=== PATIENT | male | born 1950 | race African-American/Black ===

== ENCOUNTER 2018-09-09 08:40 | Emergency (ER) | payer OTHER ==
[~2018-09-09] VITALS: Ht 182.9 cm; Wt 127.0 kg
[~2018-09-09 08:40] MED LIST: ALBU0.0939 IH
[2018-09-09 08:48] VITALS: BP 143/111
--- NOTE | 2018-09-09 08:57 | NUR ---
PT JOSE L W/C ASSIST TO ED BED 06
--- NOTE | 2018-09-09 09:00 | NUR ---
68/M C/O LEFT KNEE PAIN S/P FALL YESTERDAY. HX.DM, LT KNEE LIGAMENT REPAIR 4 YEARS AGO PATIENT STATES PAIN OF 01/14 AT THIS TIME;MARIE GASTELUM MADE AWARE OF PT STATUS. Addendum: 09/09/18 at 0908 by [email or web address] DENIED LOC.
--- NOTE | 2018-09-09 09:07 | NUR ---
X RAY AT BEDSIDE
--- NOTE | 2018-09-09 09:27 | NUR ---
Patient being evaluated by DR MARTIN at bedside.
--- NOTE | 2018-09-09 09:33 | NUR ---
Patient being reevaluated by DR MARTIN at bedside.
--- NOTE | 2018-09-09 09:45 | NUR ---
LEFT KNEE IMMOBILIZER PLACED ON PATIENT
[2018-09-09 09:47] VITALS: BP 152/82
--- NOTE | 2018-09-09 09:47 | NUR ---
Patient discharged with bp 152/82 denies cohen at this time, md made aware. Written and verbal after care instructions given and explained. Patient verbalized understanding. Ambulatory with crutches . All questions addressed prior to discharge. Advised to follow up with PMD.
== END 2018-09-09 09:47 | disposition home or self-care (01) ==
LOC: MED 08:40
DX: S89.92XA Unspecified injury of left lower leg, initial encounter (principal); M17.12 Unilateral primary osteoarthritis, left knee; K42.9 Umbilical hernia without obstruction or gangrene; K43.9 Ventral hernia without obstruction or gangrene; R03.0 Elevated blood-pressure reading, without diagnosis of hypertension; J45.909 Unspecified asthma, uncomplicated; Z88.0 Allergy status to penicillin; Z79.899 Other long term (current) drug therapy; W07.XXXA Fall from chair, initial encounter; Y93.89 Activity, other specified; Y92.89 Other specified places as the place of occurrence of the external cause; Y99.8 Other external cause status
CPT/HCPCS: 29505; 73562; 99283; Q0092

== ENCOUNTER 2021-03-09 14:33 | Emergency (ER) | payer OTHER ==
[~2021-03-09] VITALS: Ht 182.9 cm; Wt 114.3 kg
--- NOTE | 2021-03-09 14:35 | NUR ---
JENNIFER PINTO VIA GURNEY TO BED 02.
[2021-03-09 14:50] VITALS: BP 114/62
--- NOTE | 2021-03-09 14:58 | NUR ---
70 Y/O M BIB MEDICAL TRANSPORT FROM HOME, DR VERA (PCP) REQUESTED FULL SEPSIS WORKUP WITH NO CAUSE OR REASON AT THIS TIME. PT IS A&OX4, UNABLE TO AMBULATE. PT IS C/O BACK PAIN. DENIES N/V/D; SKIN IS PINK/WARM/DRY; LUNGS CLEAR BL; HR EVEN AND REGULAR; PT DENIES ANY FEVER, CP, SOB, OR COUGH AT THIS TIME; PATIENT STATES PAIN OF 7/10 AT THIS TIME, SORE SENSATION; VSS; PATIENT POSITIONED FOR COMFORT; HOB ELEVATED; BEDRAILS UP X2; BED DOWN. ER MD MADE AWARE OF PT STATUS. PMH: DM2, ASTHMA, "BACK DISEASE" ALLERGY: PENICILLIN MED: UNABLE TO RECALL
[2021-03-09 15:38] LABS: BASOPHILS % (AUTO) 0.5 % (0.0-2.0); EOSINOPHILS # (AUTO) 0.3 K/uL (0-0.4); HEMATOCRIT 32.6 % (36-52); HEMOGLOBIN 10.6 g/dL (12.0-18.0); LYMPHOCYTES # (AUTO) 1.8 K/uL (2.0-11.5); LYMPHOCYTES % (AUTO) 18.9 % (20.5-51.1); MEAN CORPUSCULAR HEMOGLOBIN 26 pg (27-31); MEAN CORPUSCULAR HGB CONC 33 g/dL (33-37); MEAN CORPUSCULAR VOLUME 79.1 fL (80-94); MONOCYTES # (AUTO) 0.5 K/uL (0.8-1.0); MONOCYTES % (AUTO) 5.5 % (1.7-9.3); NEUTROPHILS # (AUTO) 6.7 K/uL (1.8-7.7); NEUTROPHILS % (AUTO) 72.1 % (42.2-75.2); PLATELET COUNT (AUTO) 472 K/uL (140-450); RED BLOOD CELL COUNT(AUTO) 4.12 MIL/uL (4.20-6.10); RED CELL DISTRIBUTION WIDTH 17.6 % (11.6-13.7); WHITE BLOOD COUNT (AUTO) 9.3 K/uL (4.8-10.8)
[2021-03-09 15:54] LABS: ANION GAP 9.9 (8-16); CARBON DIOXIDE 28.9 mmol/L (21-32); CREATININE 1.4 mg/dL (0.6-1.3); POTASSIUM 3.8 mmol/L (3.5-5.1); TOTAL BILIRUBIN 0.3 mg/dL (0.0-1.0)
[2021-03-09] MEDS ORDERED: oxyCODONE/APAP 5/325 MG 1 TAB TAB PO ONE (18:40)
[2021-03-09 19:12] LABS: BILIRUBIN,URINE NEGATIVE (NEGATIVE); BLOOD, URINE 1+ (NEGATIVE); COLOR,URINE YELLOW (YELLOW); LEUKOCYTE ESTERASE ,URINE 3+ (NEGATIVE); NITRITE, URINE NEGATIVE (NEGATIVE); PH,URINE 5.5 (5.0-9.0); UGLUCOSE NEGATIVE (NEGATIVE)
[2021-03-09 19:20] LABS: APPEARANCE,URINE HAZY (CLEAR)
[2021-03-09 19:38] LABS: RBC,URINE TOO NUMEROUS TO COUN /HPF (0-5); WBC,URINE 0-5 /HPF (0-5)
[2021-03-09] MEDS ORDERED: SULFAMETH/TRIMETH DS 800/160MG 1 TAB PO ONE (19:45)
[2021-03-09] MEDS ORDERED: MORPHINE SULFATE 4 MG/ML SYR IM ONE (21:40)
[2021-03-09] MEDS ORDERED: SULF-59 PO (21:40)
--- NOTE | 2021-03-09 22:25 | NUR ---
pt repositioned per request and given a blanket. pt states he feels better after getting morphine. all needs met at this time. bed locked in lowest position, side rails x2.
--- NOTE | 2021-03-09 23:19 | NUR ---
pt appears to be sleeping. eyes are closed opens to touch, equal rise and fall of chest wall. vss. pt is in stable condition. all needs met at this time. bed locked in lowest position, side railsx2.
--- NOTE | 2021-03-10 03:50 | NUR ---
PT IS AWAKE USING PHONE. ALL NEEDS MET AT THIS TIME.
--- NOTE | 2021-03-10 04:13 | NUR ---
pt repositioned and given water per request.
--- NOTE | 2021-03-10 05:12 | NUR ---
pt given blanket per request.
[2021-03-10] MEDS ORDERED: HYDROcodone/APAP 5/325 MG 1 TAB TAB PO ONE (05:55)
--- NOTE | 2021-03-10 07:39 | NUR ---
report given to pili sanchez. transfer of care at this time.
--- NOTE | 2021-03-10 07:42 | NUR ---
received report from production assistant RN 70 years old male presents to er with back pain condition improved stable for D/C home awaiting for transportation with Dx UTI.
--- NOTE | 2021-03-10 10:27 | NUR ---
patient d/c home via gurney alert, oriented x4 no pain after care reviewed understood.
[2021-03-10 10:28] VITALS: BP 130/70
== END 2021-03-10 10:27 | disposition home or self-care (01) ==
LOC: MED 14:33
DX: N39.0 Urinary tract infection, site not specified (principal); M54.50 Low back pain, unspecified; J45.909 Unspecified asthma, uncomplicated; E11.9 Type 2 diabetes mellitus without complications; Z79.2 Long term (current) use of antibiotics; Z79.51 Long term (current) use of inhaled steroids; Z88.0 Allergy status to penicillin
CPT/HCPCS: 36415; 80053; 81001; 85025; 87086; 96372; 99283; J2270

== ENCOUNTER 2023-03-16 14:28 | Inpatient (IN) | payer OTHER ==
[~2023-03-16] VITALS: Ht 182.9 cm; Wt 130.6 kg
[~2023-03-16 14:28] MED LIST changes: +SULF-59 PO
[2023-03-16 14:44] VITALS: BP 204/106; PULSE 82; RESP 23; TEMP 98.2
[2023-03-16] MEDS ORDERED: MORPHINE SULFATE 2 MG/ML SYR IVP STA (14:54)
[2023-03-16] MEDS ORDERED: ASPIRIN 81 MG TAB.CHEW PO ONE (14:55)
[2023-03-16] MEDS ORDERED: NITROGLYCERIN 0.4 MG TAB SL ONE (14:55)
[2023-03-16 15:19] LABS: BASOPHILS # (AUTO) 0.1 K/uL (0.00-0.22); BASOPHILS % (AUTO) 0.6 % (0.0-2.0); EOSINOPHILS # (AUTO) 0.1 K/uL (0-0.4); HEMATOCRIT 34.7 % (36-52); HEMOGLOBIN 11.3 g/dL (12.0-18.0); LYMPHOCYTES # (AUTO) 1.5 K/uL (2.0-11.5); LYMPHOCYTES % (AUTO) 12.4 % (20.5-51.1); MEAN CORPUSCULAR HEMOGLOBIN 26 pg (27-31); MEAN CORPUSCULAR HGB CONC 33 g/dL (33-37); MONOCYTES # (AUTO) 0.6 K/uL (0.8-1.0); NEUTROPHILS # (AUTO) 9.5 K/uL (1.8-7.7); PLATELET COUNT (AUTO) 297 K/uL (140-450); RED BLOOD CELL COUNT(AUTO) 4.28 MIL/uL (4.20-6.10); RED CELL DISTRIBUTION WIDTH 13.7 % (11.6-13.7); WHITE BLOOD COUNT (AUTO) 11.8 K/uL (4.8-10.8)
[2023-03-16 15:36] LABS: ALANINE AMINOTRANSFERASE 15 U/L (12-78); ALBUMIN 3.1 g/dL (3.4-5.0); ALKALINE PHOSPHATASE 126 U/L (50-136); ANION GAP 13.9 (8-16); ASPARTATE AMINOTRANSFERASE 10 U/L (15-37); CALCIUM 8.3 mg/dL (8.5-10.1); CARBON DIOXIDE 25.1 mmol/L (21-32); CHLORIDE 102 mmol/L (98-107); CREATININE 1.7 mg/dL (0.6-1.3); SODIUM SERUM 137 mmol/L (136-145); TOTAL BILIRUBIN 0.4 mg/dL (0.0-1.0); TOTAL PROTEIN, SERUM 6.9 g/dL (6.4-8.2); UREA NITROGEN, BLOOD 17 mg/dL (7-18)
[2023-03-16 15:38] LABS: GLUCOSE 422 mg/dL (74-106)
[2023-03-16] MEDS ORDERED: NACL 0.9% 1,000 ML IV ONE (15:55)
[2023-03-16] MEDS ORDERED: INSULIN REGULAR, HUMAN 100 UNIT/ML VIAL SUBQ ONE (16:00)
[2023-03-16 16:33] LABS: INR 0.97 (0.8-1.2); PARTIAL THROMBOPLASTIN TIME 26.1 secs (22-35.6); PROTHROMBIN TIME 10.2 secs (10.8-13.4)
[2023-03-16] MEDS ORDERED: METF-1139 PO (17:46)
[2023-03-16] MEDS ORDERED: LOSA-272 PO (17:46)
[2023-03-16] MEDS ORDERED: LINA5TAB PO (17:46)
[2023-03-16] MEDS ORDERED: INSU100V4 SQ (17:46)
[2023-03-16] MEDS ORDERED: MORPHINE SULFATE 2 MG/ML SYR IVP PRN (17:50)
[2023-03-16] MEDS ORDERED: ONDANSETRON 4 MG/2 ML VIAL IVP PRN (17:50)
[2023-03-16] MEDS ORDERED: ACETAMINOPHEN 325 MG TAB PO PRN (17:50)
[2023-03-16] MEDS ORDERED: HYDROcodone/APAP 5/325 MG 1 TAB TAB PO PRN (17:50)
[2023-03-16] MEDS ORDERED: DEXTROSE 50% 50 ML SYR IVP PRN (17:55)
[2023-03-16] MEDS ORDERED: HEPARIN PER PHARMACY MC PRN ×2 (18:20→19:30)
[2023-03-16] MEDS ORDERED: hePARIN / DEXT 5% PREMIX 250 ML IV SCH (19:30)
[2023-03-16 19:51] VITALS: O2SAT 97
[2023-03-16 20:00] VITALS: PULSE 69; RESP 17; O2SAT 97
[2023-03-16 20:08] VITALS: PULSE 58; RESP 18; O2SAT 96
[2023-03-16] MEDS: BLOOD GLUCOSE MONITORING 1 DEV DEV FS SCH (21:00)
[2023-03-16] MEDS: INSULIN LISPRO SLIDING SCALE 100 UNITS/ML VIAL SUBQ PRN (23:00)
[2023-03-16] MEDS: INSULIN LANTUS 100 UNITS/ML 10 ML VIAL SUBQ SCH (23:02)
[2023-03-16] MEDS: hePARIN / DEXT 5% PREMIX 250 ML IV SCH (23:44)
[2023-03-17 04:00] VITALS: BP 158/99; PULSE 64; PULSE 72; RESP 17; TEMP 97.3; O2SAT 97
[2023-03-17] MEDS: INSULIN LISPRO SLIDING SCALE 100 UNITS/ML VIAL SUBQ PRN ×4 (06:47→20:31)
[2023-03-17] MEDS: BLOOD GLUCOSE MONITORING 1 DEV DEV FS SCH ×4 (06:48→20:31)
[2023-03-17 07:03] LABS: BASOPHILS % (AUTO) 0.4 % (0.0-2.0); EOSINOPHILS # (AUTO) 0.3 K/uL (0-0.4); EOSINOPHILS % (AUTO) 3.2 % (0.0-4.0); HEMATOCRIT 33.2 % (36-52); HEMOGLOBIN 10.9 g/dL (12.0-18.0); LYMPHOCYTES # (AUTO) 1.9 K/uL (2.0-11.5); LYMPHOCYTES % (AUTO) 19.9 % (20.5-51.1); MEAN CORPUSCULAR HEMOGLOBIN 27 pg (27-31); MEAN CORPUSCULAR HGB CONC 33 g/dL (33-37); MONOCYTES # (AUTO) 0.8 K/uL (0.8-1.0); NEUTROPHILS # (AUTO) 6.7 K/uL (1.8-7.7); NEUTROPHILS % (AUTO) 68.5 % (42.2-75.2); PLATELET COUNT (AUTO) 280 K/uL (140-450); RED BLOOD CELL COUNT(AUTO) 4.05 MIL/uL (4.20-6.10); RED CELL DISTRIBUTION WIDTH 13.8 % (11.6-13.7); WHITE BLOOD COUNT (AUTO) 9.8 K/uL (4.8-10.8)
[2023-03-17 07:14] LABS: ALANINE AMINOTRANSFERASE 13 U/L (12-78); ALBUMIN 2.9 g/dL (3.4-5.0); ALKALINE PHOSPHATASE 117 U/L (50-136); ANION GAP 12.9 (8-16); ASPARTATE AMINOTRANSFERASE 38 U/L (15-37); CALCIUM 8.1 mg/dL (8.5-10.1); CARBON DIOXIDE 24.1 mmol/L (21-32); CHLORIDE 105 mmol/L (98-107); CREATININE 1.6 mg/dL (0.6-1.3); GLUCOSE 306 mg/dL (74-106); MAGNESIUM 1.7 mg/dL (1.8-2.4); SODIUM SERUM 138 mmol/L (136-145); TOTAL BILIRUBIN 0.3 mg/dL (0.0-1.0); TOTAL PROTEIN, SERUM 6.3 g/dL (6.4-8.2); UREA NITROGEN, BLOOD 19 mg/dL (7-18)
[2023-03-17] MEDS: hePARIN / DEXT 5% PREMIX 250 ML IV SCH ×3 (07:28→22:46)
[2023-03-17 08:00] VITALS: BP 110/80; PULSE 60; RESP 18; TEMP 96; O2SAT 96; O2SAT 98
[2023-03-17] MEDS ORDERED: ENOXAPARIN 40 MG/0.4 ML SYR SUBQ SCH (09:00)
[2023-03-17 12:00] VITALS: BP 162/72; PULSE 60; PULSE 62; RESP 18; TEMP 96; O2SAT 97
[2023-03-17] MEDS: LOSARTAN 25 MG TAB PO SCH (12:07)
[2023-03-17] MEDS: ASPIRIN 81 MG TAB.CHEW PO SCH (12:07)
[2023-03-17] MEDS: CLONIDINE HYDROCHLORIDE 0.1 MG TAB PO PRN (13:44)
[2023-03-17 13:45] LABS: INR 1.03 (0.8-1.2); PARTIAL THROMBOPLASTIN TIME 47.6 secs (22-35.6); PROTHROMBIN TIME 10.8 secs (10.8-13.4)
[2023-03-17 16:00] VITALS: BP 140/81; PULSE 66; PULSE 71; RESP 18; TEMP 96.6; O2SAT 97
[2023-03-17 20:00] VITALS: BP 158/91; PULSE 67; PULSE 76; RESP 20; TEMP 97.6; O2SAT 95
[2023-03-17] MEDS: INSULIN LANTUS 100 UNITS/ML 10 ML VIAL SUBQ SCH (20:31)
[2023-03-17 22:29] LABS: INR 1.04 (0.8-1.2); PARTIAL THROMBOPLASTIN TIME 42.6 secs (22-35.6); PROTHROMBIN TIME 10.9 secs (10.8-13.4)
[2023-03-18] VITALS: BP 135/57; PULSE 57; PULSE 64; RESP 18; TEMP 96.6; O2SAT 94
[2023-03-18 04:00] VITALS: BP 143/69; PULSE 58; PULSE 66; RESP 18; TEMP 97.1; O2SAT 94
[2023-03-18] MEDS: hePARIN / DEXT 5% PREMIX 250 ML IV SCH ×2 (05:37→16:04)
[2023-03-18] MEDS: BLOOD GLUCOSE MONITORING 1 DEV DEV FS SCH ×4 (06:39→20:57)
[2023-03-18] MEDS: INSULIN LISPRO SLIDING SCALE 100 UNITS/ML VIAL SUBQ PRN ×4 (06:39→21:03)
[2023-03-18] MEDS: CLONIDINE HYDROCHLORIDE 0.1 MG TAB PO PRN (07:57)
[2023-03-18 08:00] VITALS: BP 161/79; PULSE 54; PULSE 61; RESP 20; TEMP 97.7; O2SAT 97
[2023-03-18] MEDS: LOSARTAN 25 MG TAB PO SCH (08:46)
[2023-03-18] MEDS: ASPIRIN 81 MG TAB.CHEW PO SCH (08:46)
[2023-03-18 09:21] LABS: APPEARANCE,URINE CLEAR (CLEAR); BILIRUBIN,URINE NEGATIVE (NEGATIVE); BLOOD, URINE NEGATIVE (NEGATIVE); COLOR,URINE YELLOW (YELLOW); LEUKOCYTE ESTERASE ,URINE NEGATIVE (NEGATIVE); NITRITE, URINE NEGATIVE (NEGATIVE); PROTEIN,URINE TRACE (NEGATIVE); UGLUCOSE 1+ (NEGATIVE); UROBILINOGEN,URINE 0.2 EU/dL (0.2 - 1)
[2023-03-18 09:58] LABS: BACTERIA,URINE OCCASSIONAL /HPF (None Seen); RBC,URINE 0-5 /HPF (0-5); SQUAMOUS EPITHELIAL CELL,UR 0-3 (FEW) /LPF (0-3 (FEW)); WBC,URINE 0-5 /HPF (0-5)
[2023-03-18 12:00] VITALS: BP 139/75; PULSE 59; PULSE 61; RESP 18; TEMP 96.9; O2SAT 99
[2023-03-18 16:00] VITALS: BP 144/73; PULSE 60; PULSE 63; RESP 18; TEMP 97.8; O2SAT 98
[2023-03-18 20:00] VITALS: BP 159/84; PULSE 69; RESP 18; TEMP 97.8; O2SAT 98
[2023-03-18] MEDS: INSULIN LANTUS 100 UNITS/ML 10 ML VIAL SUBQ SCH (21:04)
[2023-03-19] VITALS (8 sets, daily range): BP systolic 145–163; BP diastolic 62–82; PULSE 63–85; RESP 18–22; TEMP 97.3–98.4; O2SAT 96–98
[2023-03-19] MEDS: BLOOD GLUCOSE MONITORING 1 DEV DEV FS SCH ×2 (06:31→11:52)
[2023-03-19] MEDS: INSULIN LISPRO SLIDING SCALE 100 UNITS/ML VIAL SUBQ PRN ×2 (06:42→11:58)
[2023-03-19 07:40] LABS: INR 0.99 (0.8-1.2); PROTHROMBIN TIME 10.4 secs (10.8-13.4)
[2023-03-19 07:44] LABS: PARTIAL THROMBOPLASTIN TIME 57.5 secs (22-35.6)
[2023-03-19] MEDS: ASPIRIN 81 MG TAB.CHEW PO SCH (09:00)
[2023-03-19] MEDS: LOSARTAN 25 MG TAB PO SCH (09:01)
[2023-03-19] MEDS ORDERED: METOPROLOL SUCCINATE 50 MG TABER PO SCH (10:11)
[2023-03-19] MEDS: hePARIN / DEXT 5% PREMIX 250 ML IV SCH (11:44)
[2023-03-19] MEDS ORDERED: METO25TE2 PO (13:37)
[2023-03-19] MEDS ORDERED: ASPI-1856 PO (13:37)
[2023-03-20] MEDS ORDERED: METOPROLOL SUCCINATE 50 MG TABER PO SCH (09:00)
[2023-03-20 09:41] LABS: BASOPHILS # (AUTO) 0.1 K/uL (0.00-0.22); BASOPHILS % (AUTO) 0.7 % (0.0-2.0); EOSINOPHILS # (AUTO) 0.2 K/uL (0-0.4); EOSINOPHILS % (AUTO) 2.4 % (0.0-4.0); HEMATOCRIT 34.2 % (36-52); LYMPHOCYTES # (AUTO) 1.7 K/uL (2.0-11.5); LYMPHOCYTES % (AUTO) 18.4 % (20.5-51.1); MEAN CORPUSCULAR HEMOGLOBIN 27 pg (27-31); MEAN CORPUSCULAR HGB CONC 32 g/dL (33-37); MEAN CORPUSCULAR VOLUME 83.1 fL (80-94); MONOCYTES # (AUTO) 0.5 K/uL (0.8-1.0); MONOCYTES % (AUTO) 5.3 % (1.7-9.3); NEUTROPHILS # (AUTO) 6.7 K/uL (1.8-7.7); NEUTROPHILS % (AUTO) 73.2 % (42.2-75.2); PLATELET COUNT (AUTO) 336 K/uL (140-450); RED BLOOD CELL COUNT(AUTO) 4.11 MIL/uL (4.20-6.10); RED CELL DISTRIBUTION WIDTH 13.9 % (11.6-13.7); WHITE BLOOD COUNT (AUTO) 9.2 K/uL (4.8-10.8)
== END 2023-03-19 16:00 | disposition home or self-care (01) | DRG 280 ==
LOC: MED 14:28 → MTU 17:55 → OBSVTOIN 03-17 14:28 → MTU 03-17 15:00
PROVIDERS: ADMIT Hospitalist; ATTEND Hospitalist
DX: I21.4 Non-ST elevation (NSTEMI) myocardial infarction (principal); R65.11 Systemic inflammatory response syndrome (SIRS) of non-infectious origin with acute organ dysfunction; I16.1 Hypertensive emergency; I10 Essential (primary) hypertension; I11.9 Hypertensive heart disease without heart failure; E66.01 Morbid (severe) obesity due to excess calories; Z68.39 Body mass index [BMI] 39.0-39.9, adult; I25.10 Atherosclerotic heart disease of native coronary artery without angina pectoris; E11.9 Type 2 diabetes mellitus without complications; G89.29 Other chronic pain; Z20.822 Contact with and (suspected) exposure to COVID-19; Z88.0 Allergy status to penicillin
CPT/HCPCS: 96372; 96374; 99291; G0378; 36415; 71045; 80053; 81001; 82271; 82948; 83735; 83880; 84484; 85025; 85379; 85610; 85730; 87081; 93005; J1644; J1815; J2270; Q0092